=== PATIENT | male | born 1980 | race Caucasian/White ===

== ENCOUNTER → 2019-10-27 | Outpatient (CLI) | payer OTHER ==
--- NOTE | 2019-10-27 15:57 | US ---
EXAMINATION TYPE: US kidneys/renal and bladder DATE OF EXAM: 10/27/2019 COMPARISON: NONE CLINICAL HISTORY: Z87.442 Personal history of urinary calculi. History of kidney and bladder stones EXAM MEASUREMENTS: Right Kidney: 10.0 x 4.7 x 4.9 cm Left Kidney: 10.3 x 5.1 x 5.5 cm Patient scanned in wheelchair Right Kidney: no evidence of hydronephrosis Left Kidney: no evidence of hydronephrosis Bladder: irregular hurtado noted, appear thickened with possible debris noted Bilateral Jets seen: no Kidneys show normal cortical medullary differentiation. IMPRESSION: Correlate for possible cystitis, urinary tract infection, there is thickening of the bladder wall pos sibly due to lack of distention.
== END | disposition home or self-care (01) ==
LOC: RADUSWWP 15:13
PROVIDERS: ATTEND Family Medicine
DX: Z09 Encounter for follow-up examination after completed treatment for conditions other than malignant neoplasm (principal); R93.41 Abnormal radiologic findings on diagnostic imaging of renal pelvis, ureter, or bladder; Z87.442 Personal history of urinary calculi
CPT/HCPCS: 76770